=== PATIENT | female | born 1935 | race Two or more races ===

== ENCOUNTER 2016-09-04 12:29 | Outpatient (CLI) | payer MEDICARE, MEDICAID | END 2016-09-04 23:59 | disposition home or self-care (01) | LOC: WOU 12:29 | PROVIDERS: ATTEND Podiatrist Foot & Ankle Surgery | DX: M72.2 Plantar fascial fibromatosis (principal); B35.1 Tinea unguium; M20.12 Hallux valgus (acquired), left foot; I10 Essential (primary) hypertension; K21.9 Gastro-esophageal reflux disease without esophagitis | CPT/HCPCS: 73630-TC; G0463 ==

== ENCOUNTER 2016-09-10 09:22 | Outpatient (CLI) | payer MEDICARE, MEDICAID ==
[2016-09-10] MEDS ORDERED: LIDOCAINE 1%-EPI 1:100,000 20 ML VIAL IJ ONE (11:00)
[2016-09-10] MEDS ORDERED: DEXAMETHASONE SOD PHOSPHATE 4 MG/ML VIAL IJ ONE (11:00)
[2016-09-10] MEDS ORDERED: ETHYL CHLORIDE SPRAY 1 EA BOTTLE TP ONE ×2 (11:00)
== END 2016-09-10 23:59 | disposition home or self-care (01) ==
LOC: WOU 09:22
PROVIDERS: ATTEND Podiatrist Foot & Ankle Surgery
DX: M72.2 Plantar fascial fibromatosis (principal); M25.572 Pain in left ankle and joints of left foot; I10 Essential (primary) hypertension; K21.9 Gastro-esophageal reflux disease without esophagitis; Z79.899 Other long term (current) drug therapy
CPT/HCPCS: A6402; J1100; J3490

== ENCOUNTER 2016-09-24 14:35 | Outpatient (CLI) | payer MEDICARE, MEDICAID | END 2016-09-24 23:59 | disposition home or self-care (01) | LOC: WOU 14:35 | PROVIDERS: ATTEND Podiatrist Foot & Ankle Surgery | DX: M72.2 Plantar fascial fibromatosis (principal); M25.572 Pain in left ankle and joints of left foot; M77.52 Other enthesopathy of left foot and ankle | CPT/HCPCS: G0463 ==